=== PATIENT | male | born 1960 ===

== ENCOUNTER 2020-10-22 17:53 | Inpatient (IN) | payer OTHER ==
[~2020-10-22] VITALS: Ht 180.3 cm; Wt 62.8 kg
--- NOTE | 2020-10-22 18:25 | NUR ---
PT PLACED ON ALL ROOM MONITORING. PT DENIES CP OR ABD PAIN AT THIS TIME, STATES FEELING "SHORT OF BREATH". CALL LIGHT WITHIN REACH.
--- NOTE | 2020-10-22 18:49 | NUR ---
REPORT RECIEVED FROM ITA JAMESON
[2020-10-22] MEDS ORDERED: SODIUM CHLORIDE FLUSH 10ML SYR IVF ONE (19:00)
--- NOTE | 2020-10-22 19:07 | NUR ---
REPORT TO AGNES, TRANSFER OF CARE AT THIS TIME.
[2020-10-22 19:09] LABS: MEAN CORPUSCULAR HEMOGLOBIN 29.1 pg (27.5-34.5); MEAN CORPUSCULAR HGB CONC 33.5 g/dL (33.2-36.2); MEAN PLATELET VOLUME 8.5 fL (7.4-10.4); PLATELET COUNT 277 x10^3/uL (130-400); RED CELL DISTRIBUTION WIDTH 15.5 % (9.4-14.8)
[2020-10-22 19:20] LABS: ALANINE AMINOTRANSFERASE 30 U/L (12-78); ALBUMIN 3.5 g/dL (3.4-5.0); ANION GAP 6 mmol/L (5-15); C-REACTIVE PROTEIN, QUANT 0.24 mg/dL (0.02-0.49); CALCIUM 9.2 mg/dL (8.5-10.1); CHLORIDE 108 mmol/L (98-107); CREATININE 2.03 mg/dL (0.7-1.3)
[2020-10-22 19:24] LABS: INTERNATIONAL NORMALIZED RATIO 0.96 (0.93-1.1); PROTHROMBIN TIME 10.3 Seconds (9.6-11.5)
[2020-10-22 19:25] LABS: ALKALINE PHOSPHATASE 100 U/L (45-117); BILIRUBIN,TOTAL 0.4 mg/dL (0.2-1.0); TOTAL PROTEIN 8.3 g/dL (6.4-8.2); TROPONIN I < 0.015 ng/mL (0.000-0.045)
[2020-10-22] MEDS ORDERED: LABETALOL 5MG/ML, 20ML IVPush ONE (19:30)
--- NOTE | 2020-10-22 19:36 | NUR ---
PT TO BE GIVEN LABETOLOL STATED SINCE PT HAS A DISECTION HIS BLOOD PRESSURE NEEDS TO MAINTINED IN THE SYSTOLIC OF 100S
[2020-10-22 20:01] LABS: EOS#(MANUAL) 0.44 x10^3/uL (0.0-0.4); EOS% (MANUAL) 9 % (1-7); LYMPH#(MANUAL) 1.23 x10^3/uL (1-3.4); LYMPHS% (MANUAL) 25 % (22-44); MONOS#(MANUAL) 0.15 x10^3/uL (0.3-2.7); MONOS% (MANUAL) 3 % (2-9); SEG#(MANUAL) 3.09 x10^3/uL (1.8-6.8); SEGS% (MANUAL) 63 % (42-75)
[2020-10-22 20:02] LABS: ANISOCYTOSIS 1+
[2020-10-22 20:03] LABS: <PLATELET ESTIMATE> ADEQUATE; <PLT MORPHOLOGY> NORMAL PLT MORPH; D-DIMER (DIC) 0.77 ug/mlFEU (0.00-0.52); ECHINOCYTES 1+; OVALOCYTES 1+; PROTIME 10.3 Seconds (9.6-11.5)
--- NOTE | 2020-10-22 20:09 | NUR ---
ALVIN [phone] (DAUGHTER)
[2020-10-22] MEDS ORDERED: POLYETHYLENE GLYCOL 17 GM PACKET PO PRN (20:30)
[2020-10-22] MEDS ORDERED: OXYcodone IR 5MG TABLET PO PRN (20:30)
[2020-10-22] MEDS ORDERED: ONDANSETRON 2MG/ML, 2ML IVPush PRN (20:30)
[2020-10-22] MEDS ORDERED: ESMOLOL/NS PMX 250 ML IV PRN (20:30)
[2020-10-22] MEDS ORDERED: ACETAMINOPHEN 325 MG TABLET PO PRN (20:30)
[2020-10-22] MEDS ORDERED: BACLOFEN 10 MG TABLET PO PRN (20:30)
[2020-10-22] MEDS ORDERED: MELATONIN 5 MG TABLET PO PRN (20:30)
[2020-10-22] MEDS ORDERED: LABETALOL 5MG/ML, 20ML IVPush PRN (20:30)
[2020-10-22] MEDS ORDERED: morphine SULFATE 10 MG/ML, 1ML IVPush PRN (20:30)
--- NOTE | 2020-10-22 21:50 | NUR ---
care assumed. pt transfered to 12, pt AxOx4. on monitor. No c/o CP.
--- NOTE | 2020-10-22 21:54 | NUR ---
discussed Esmolol gtt with . Per hold for now
--- NOTE | 2020-10-22 22:26 | NUR ---
pt resting comfortably. pt denies pain or SOB. VSS.
--- NOTE | 2020-10-23 01:18 | NUR ---
pt ambulated to br. pt RA sats 92% when back in bed. Pt denies pain. requests food. PO given
--- NOTE | 2020-10-23 02:18 | NUR ---
pt asleep, pts VSS.
--- NOTE | 2020-10-23 05:07 | NUR ---
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 Ernst, regarding level of care. Patient CCU due to antihypertensive drip ordered. However, patient has not needed it started. Patient has been maintaining his systolic BPs within range of 100s-120. Dr. Ernst advised that downgrading level of care is a possibility but the decision will be made by the motion picture projectionist apprentice in the am. Primary RN aware.
[2020-10-23 05:30] LABS: BASOPHILS % (AUTO) 1 % (0-1); EOSINOPHILS % (AUTO) 10 % (1-7); LYMPHOCYTES % (AUTO) 14 % (22-44); MEAN CORPUSCULAR HEMOGLOBIN 29.5 pg (27.5-34.5); MEAN CORPUSCULAR HGB CONC 34.3 g/dL (33.2-36.2); MONOCYTES % (AUTO) 12 % (2-9); NEUTROPHILS % (AUTO) 63 % (42-75); PLATELET COUNT 280 x10^3/uL (130-400); RED BLOOD COUNT 4.56 x10^6/uL (4.38-5.82); RED CELL DISTRIBUTION WIDTH 15.5 % (9.4-14.8)
[2020-10-23 05:37] LABS: ANION GAP 7 mmol/L (5-15); CALCIUM 8.9 mg/dL (8.5-10.1); CHLORIDE 109 mmol/L (98-107)
[2020-10-23 05:38] LABS: CREATININE 1.94 mg/dL (0.7-1.3)
--- NOTE | 2020-10-23 05:39 | NUR ---
pt sitting on gurney, pt states work of breathing unchanged. Pt speaking in full sentences but sob with exertion.
--- NOTE | 2020-10-23 06:54 | NUR ---
TOOK REPORT FROM JACQUE DOBSON, ASSUME CARE AT THIS TIME
--- NOTE | 2020-10-23 06:56 | NUR ---
report to Pt on monitor and VSS
--- NOTE | 2020-10-23 07:06 | NUR ---
Clare alvarez in [facility] - 10/23/20 at 0711 by [facility]-nursing communication sent for esmolol
--- NOTE | 2020-10-23 07:07 | NUR ---
Clare alvarez in [facility] - 10/23/20 at 0711 by IVA PT AMBULATED TO RESTROOM WITH STEADY GAIT, LINENS CHANGED. NAD
--- NOTE | 2020-10-23 07:11 | NUR ---
PT SLEEPING RR EVEN AND UNLABORED. NAD
--- NOTE | 2020-10-23 10:58 | NUR ---
Pt downgraded to card/tele; requested bed.
--- NOTE | 2020-10-23 11:03 | NUR ---
REPORT FROM LUCY JAMESON.
--- NOTE | 2020-10-23 11:10 | NUR ---
CALLED MD RUSSO, PT REPORTS CHEST PRESSURE 4/10, REFUSES MORPHINE AT THIS TIME. RAFAELA AGREES TO CARD TELE ADMIT
[2020-10-23] MEDS: LORazepam 2 MG/ML, 1ML IVPush PRN ×2 (12:18→20:06)
[2020-10-23] MEDS ORDERED: LIDOCAINE-MPF 1%, 2ML ENDO PRN (13:00)
[2020-10-23] MEDS ORDERED: CARVEDILOL 12.5 MG TABLET PO ONE (13:00)
[2020-10-23] MEDS ORDERED: DEXTROSE 50%, 50ML SYRINGE IVPush PRN (13:00)
[2020-10-23] MEDS ORDERED: LACTULOSE 20 GM/30 ML UDC NG PRN (13:00)
[2020-10-23] MEDS ORDERED: GLUCAGON 1 MG IM PRN (13:00)
[2020-10-23] MEDS ORDERED: PHARMACY MAY ADJ FOR RENAL FX MC SCH (13:00)
[2020-10-23] MEDS ORDERED: CARVEDILOL 6.25 MG TABLET ONE (13:17)
[2020-10-23] MEDS ORDERED: LISINOPRIL 10 MG TABLET PO ONE (13:22)
[2020-10-23] MEDS: LABETALOL 5MG/ML, 20ML IVPush PRN ×2 (13:44→17:22)
[2020-10-23 13:47] VITALS: BP_SYST 136; BP_SYST 142; BP_DIAS 86; BP_DIAS 88
[2020-10-23] MEDS: AMLODIPINE 5 MG TABLET PO SCH ×2 (14:34→20:06)
[2020-10-23 14:49] VITALS: BP 114/78
[2020-10-23 17:23] VITALS: BP 138/88
[2020-10-23] MEDS: CARVEDILOL 12.5 MG TABLET PO SCH (18:19)
[2020-10-23 19:59] VITALS: BP 110/65
[2020-10-23] MEDS: SODIUM CHLORIDE FLUSH 10ML SYR IVF SCH (20:31)
[2020-10-24] VITALS (8 sets, daily range): BP systolic 110–147; BP diastolic 69–90
[2020-10-24] MEDS: CARVEDILOL 12.5 MG TABLET PO SCH (05:54)
[2020-10-24] MEDS: LABETALOL 5MG/ML, 20ML IVPush PRN ×2 (05:54→09:38)
[2020-10-24 06:36] LABS: CALCIUM 9.4 mg/dL (8.5-10.1); CHLORIDE 106 mmol/L (98-107)
[2020-10-24 06:40] LABS: ANION GAP 8 mmol/L (5-15); CREATININE 1.58 mg/dL (0.7-1.3)
[2020-10-24] MEDS: SODIUM CHLORIDE FLUSH 10ML SYR IVF SCH (08:20)
[2020-10-24] MEDS: AMLODIPINE 5 MG TABLET PO SCH (08:20)
[2020-10-24] MEDS ORDERED: LISINOPRIL 10 MG TABLET PO SCH (09:00)
[2020-10-24] MEDS ORDERED: LISI-170 PO (11:54)
[2020-10-24] MEDS ORDERED: HYDR-3342 PO (11:54)
[2020-10-24] MEDS ORDERED: AMLO-211 PO (11:54)
[2020-10-24] MEDS ORDERED: LABE100T6 PO (11:54)
[2020-10-24] MEDS ORDERED: TAMS-11 PO (11:54)
[2020-10-24] MEDS ORDERED: CLON0.1T22 PO (11:54)
[2020-10-24] MEDS ORDERED: LABETALOL 100 MG TABLET PO SCH (12:00)
[2020-10-24] MEDS ORDERED: CARV12.52 PO (12:33)
[2020-10-25] MEDS ORDERED: TAMSULOSIN 0.4 MG CAP.ER.24H PO SCH (09:00)
== END 2020-10-24 17:00 | disposition home or self-care (01) | DRG 177 ==
LOC: ED 18:15 → EDIP 20:51 → 5SO 10-23 11:57
PROVIDERS: ADMIT Internal Medicine; ATTEND Family Medicine
DX: U07.1 COVID-19 (principal); I71.02 Dissection of abdominal aorta; F19.10 Other psychoactive substance abuse, uncomplicated; I12.9 Hypertensive chronic kidney disease with stage 1 through stage 4 chronic kidney disease, or unspecified chronic kidney disease; N40.0 Benign prostatic hyperplasia without lower urinary tract symptoms; N18.30 Chronic kidney disease, stage 3 unspecified; Z87.891 Personal history of nicotine dependence; Z79.899 Other long term (current) drug therapy
CPT/HCPCS: 36415; 71045; 80048; 80053; 82728; 83605; 83615; 83735; 84145; 84484; 85025; 85049; 85379; 85384; 85610; 85730; 86140; 87040; 93005; 93306; 93356; 96374; 96375; 99285; G0378; U0005; J2060; U0003

== ENCOUNTER 2020-10-22 18:02 | Emergency (ER) | payer SELFPAY ==
[2020-10-22] MEDS ORDERED: LABETALOL 5MG/ML, 20ML ONE (19:28)
== END 2020-10-22 18:09 ==
LOC: ED 18:05
DX: R07.89 Other chest pain (principal); Z53.21 Procedure and treatment not carried out due to patient leaving prior to being seen by health care provider